=== PATIENT | male | born 1960 | race Caucasian/White ===

== ENCOUNTER 2016-11-03 03:56 | Inpatient (IN) | payer OTHER ==
[2016-11-03] VITALS (21 sets, daily range): BP systolic 11–136; BP diastolic 61–87; PULSE 3–95; RESP 15–26; O2SAT 92–100
[~2016-11-03] VITALS: Ht 177.8 cm; Wt 75.1 kg
--- NOTE | 2016-11-03 04:00 | ED.REPORT ---
HPI-Chest Pain 40 and Over Date of Service Nov 03, 2016 ED Provider: Dr. Howard Pt is a 56 year old male presenting to the ED complaining of sudden onset sharp abdominal pain onset at 0100 this morning. Associated symptoms include a productive cough, SOB, diaphoresis and nausea. He denies hx of ulcer, gallstones or pancreatitis. Pt reports that he normally drinks two fifths per week, and reports drinking EtOH tonight. Nursing Notes Stated Complaint: CHEST PAIN Chief Complaint: Male Abdominal Pain Nursing Notes Reviewed: Yes Allergies: Coded Allergies: iodine (Verified Allergy, Severe, SHELLFISH GETS HIVES BUT PT SAYS HE HAD CONTRAST DYE IN PAST, 05/07/09) peanut (Verified Allergy, Severe, RASH, 05/07/09) General Time Seen by MD: 04:00 Chief Complaint Other (Abd pain) Hx Obtained From: Patient Arrived By: Walk-in Sudden in Onset?: Yes Onset Occurred: 1 - 4 hours ago Context of Onset: Sleeping Symptom Duration: Since onset Quality: Painful Severity: Current: Severe Severity: Maximum: Severe Recent Healthcare: No recent doctor visit, No recent hospitalization Similar Sx Previous: No Past Medical History Past Medical History denies Past Surgical History denies Denies: Appendectomy Social History Alcohol Use: 1-3 per day Ambulatory Status Independent Review of Systems Respiratory: Reports: Non-productive cough, Shortness of breath GI: Reports: Abdominal pain, Nausea, Denies: Diarrhea, Vomiting Skin: Reports Diaphoresis Complete sys rev & neg: except as marked. Physical Exam Initial Vital Signs Vital Signs (First) Date Time Temp Pulse Resp B/P Pulse Ox O2 Delivery O2 Flow Rate FiO2 11/03/16 04:00 36.4 94 19 127/79 100 Room Air Initial VS: Reviewed Head / Eyes: Atraumatic, Normocephalic, PERRL ENT: Mucous membranes moist, Conjunctiva normal, No scleral icterus Extremities: Vascular intact, Neuro intact, No swelling, No tenderness Skin: Warm, Dry, No cyanosis Neurologic: Alert, Oriented, Nonfocal Psychiatric: Mood/affect normal, Behavior normal, Normal thought content General/Constitutional: Awake, Alert Distress / Hydration: Positive: Distress severe Smells of cigarettes Respiratory / Chest: Breath sounds NL, Breath sounds = bilat, No respiratory distress Cardiovascular: Heart rate NL, Regular rhythm, Heart sounds NL, No murmurs, Peripheral circulation NL, Pulses = bilaterally, No gross BP differential Abdomen: No distention Tenderness/Guarding/Rebound: Positive: Rigid to palpation Panting and grunting with pain Interpretation & Diagnostics Lab Results Interpretation Result Diagram: 11/03/16 0406 11/03/16 0406 Test 11/03/16 04:06 White Blood Count 6.8th/mm3 (3.8-10.1) Red Blood Count 4.51mil/mm3 (4.40-5.80) Hemoglobin 15.3g/dL (13.8-17.2) Hematocrit 44.5% (41.0-50.0) Mean Corpuscular Volume 98.7fL (81-100) Mean Corpuscular Hemoglobin 33.9pg (27.0-35.0) Mean Corpuscular Hemoglobin Concent 34.4% (32.0-37.0) Red Cell Distribution Width 12.8% (12.3-15.4) Platelet Count 266bil/L (150-400) Neutrophils (%) (Auto) 37.2% (40-74) Lymphocytes (%) (Auto) 46.9% (14-46) Monocytes (%) (Auto) 5.5% (4-12) Eosinophils (%) (Auto) 8.7% (0-5) Basophils (%) (Auto) 1.6% (0-3) Prothrombin Time 10.7sec (8.1-12.5) Prothromb Time International Ratio 1.00ratio Sodium Level 140mEq/L (134-144) Potassium Level 4.0mEq/L (3.5-5.2) Chloride Level 104mEq/L (97-108) Carbon Dioxide Level 22mmol/L (18-29) Blood Urea Nitrogen 24mg/dL (6-24) Creatinine 0.74mg/dL (0.76-1.27) Estimat Glomerular Filtration Rate 116mL/min (>59) Glucose Level 122mg/dL (60-99) Lactic Acid Level 2.0mmol/L (0.4-2.0) Calcium Level 9.3mg/dL (8.5-10.1) Magnesium Level 1.9mg/dL (1.6-2.6) Total Bilirubin 0.4mg/dL (0.0-1.2) Aspartate Amino Transf (AST/SGOT) 60U/L (0-50) Alanine Aminotransferase (ALT/SGPT) 67U/L (0-44) Alkaline Phosphatase 63U/L (25-150) Total Protein 7.2g/dL (6.4-8.4) Albumin 4.6g/dL (3.4-5.0) Lipase 30U/L (13-60) Hold Hale Top Tube Received (Received) ECG Interpretation ECG Interpretation: Abnormal R-wave progression, early transition. Time: 04:04 Interpreted by: ED physician Normal ECG Interpretation: Normal rate (85), Normal sinus rhythm Re-Eval/Medical Decision Med Decision/Clinical Course 56-year-old with fairly heavy drinking history, ongoing tobacco abuse, but no other complications of alcohol prior. He presents now with intense epigastric abdominal pain of sudden onset today, and proves to have a perforated gastric ulcer. He is admitted now to the surgical service for operative management. IV fluids, Zosyn, and transported in stable condition. Time of Eval: 04:35 Patient Status: Condition improved Re-Evaluation/Progress Note: Pt still pretty tender, but his pain is improved. Counseled Regarding: Diagnosis, Lab results, Need for follow-up, When/why to return to ED Discharge & Departure Primary Impression: Perforated gastric ulcer Additional Impressions: Alcoholism /alcohol abuse Tobacco abuse Disposition: Home Discharge Condition All VS Reviewed: Yes Condition: Improved Referrals: Tomás Mcgill MD (PCP) Scrib[facility] Attestation Portions of this note were transcribed by Rachel Guaman. I, Dr. Howard personally performed the history, physical exam and medical decision-making; I reviewed and confirmed the accuracy of the information in the transcribed note. Signed by: Denis Reyna, 11/03/2016 at 0600. copies to: Tomás Mcgill MD, Christopher W MD Nov 03, 2016 04:00 RACHEL GUAMAN Nov 03, 2016 04:08
[2016-11-03] MEDS ORDERED: 0.9% Sodium Chloride 1,000 ML IV ONE ×2 (04:06→06:40)
[2016-11-03] MEDS: HYDROmorphone 1 mg/mL Inj IVPUSH PRN ×2 (04:08→04:32)
[2016-11-03] MEDS ORDERED: Pantoprazole 4 mg/mL 10 mL Inj IVPUSH ONE (04:10)
[2016-11-03] MEDS ORDERED: Ondansetron 2 mg/mL 2 mL Inj IVPUSH ONE (04:10)
[2016-11-03 04:16] LABS: BASOPHILS % (AUTO) 1.6 % (0-3); EOSINOPHILS % (AUTO) 8.7 % (0-5); MONOCYTES % (AUTO) 5.5 % (4-12); Mean Corpuscular Hemoglobin 33.9 pg (27.0-35.0); Mean Corpuscular Volume 98.7 fL (81-100); NEUTROPHILS % (AUTO) 37.2 % (40-74); Platelet Count 266 bil/L (150-400)
[2016-11-03 04:38] LABS: Magnesium 1.9 mg/dL (1.6-2.6)
[2016-11-03] MEDS ORDERED: MethylprednisoLONE Sodium Succinate 62.5 mg/mL 2 mL Inj IVPUSH ONE (04:50)
[2016-11-03] MEDS ORDERED: Iohexol 300 mg/mL 30 mL Inj PO ONE (04:50)
[2016-11-03] MEDS ORDERED: Piperacillin-Tazo 3.375 Gm Inj 3.375 GM in Dextrose 5% Minibag Plus 50 ML IV ONE (06:40)
[2016-11-03] MEDS ORDERED: Lactated Ringer's 500 ML IV PRN (07:21)
--- NOTE | 2016-11-03 07:21 | PCM.HPANE ---
Patient Data Surgeon Admitting Provider: Attending Provider:Marilia Nickerson MD Primary Care Physician:Tomás Mcgill MD Other Provider:[facility] [facility] Reason for Visit Perforated Gastric Ulcer Ht/WT & BMI Weight (Kilograms): 77.27 Body Mass Index Allergies Coded Allergies: iodine (Verified Allergy, Severe, SHELLFISH GETS HIVES BUT PT SAYS HE HAD CONTRAST DYE IN PAST, 05/07/09) peanut (Verified Allergy, Severe, RASH, 05/07/09) Past Anesthesia History Anesthesia History: Denies:: Anesthesia Reactions Diabetes History Hx Diabetes?: No MRSA MRSA: No Medications Hypertension Medication: No Home Meds Incl Beta April: No History History of ENT Problems?: No HEENT History: Denies:: Cataracts Dysphagia Sinus Problem Denture Type: None Teeth Condition: Within Normal Limits Hx of Heart Problems?: No Cardiovascular History: Denies:: Cardiac Surgery Chest Pain Congestive Heart Failure Edema Heart Murmur Hypertension Irregular Heartbeat Pacemaker Thrombophlebitis Hx of Respiratory Problem?: Yes Respiratory History: Positive for:: Pneumonia Denies:: Asthma COPD Chest Surgery Dyspnea Emphysema Hemoptysis Tuberculosis Hx Neurologic Problems?: No Hx of GI Problems?: Yes Hx of Problems?: No Hx Musculoskeletal Problems?: No Musculoskeletal History: Positive for:: Back Injury Denies:: Joint Replacement Musculoskeletal Trauma Psycho Social History: Positive for:: Anxiety Hx Depression (was on antidepressant for short period) Hx Surgeries?: No Other History: Denies:: Cancer Endocrine Disease Hospitalization Thyroid Disease History Blood Transfusions: Denies:: Blood Transfuse Reaction Blood Transfusions Hx Diabetes: No Hx Alcohol Use: Yes (2 fifths per week)Hx Substance Use: NoHave You Smoked inLast 12 mo: YesApprox How Many Cigarettes/day: 2 packs per day Stop/Bang Treated for Sleep Apnea?: No Do You Have a CPAP Machine?: No LACHELLE Risk Assessment: Low Risk, <3 Yes Risk Assessment Category Category 1A: Patient has history of documented sleep apnea, and HAS NOT received any narcotic, sedative or anesthesia administration during this stay. Category 1B: Patient has history of documented sleep apnea, and HAS received any narcotic , sedative or anesthesia administration during this stay Category 2: Patient has SUSPECTED Obstructive Sleep Apnea, and HAS received any narcotic , sedative or anesthesia administration during this stay. Category 3: Patient has SUSPECTED Obstructive Sleep Apnea and HAS NOT received narcotic, sedative or anesthesia administration during this stay. Category 4: Outpatient in Procedural Areas with known sleep apnea or who screen positive for High Risk via the STOP/BANG questionnaire. Exam Exam Vital Signs Vital Signs Date Time Temp Pulse Resp B/P Pulse Ox O2 Delivery O2 Flow Rate FiO2 11/03/16 06:57 36.7 82 18 136/78 98 Room Air 11/03/16 04:00 36.4 94 19 127/79 100 Room Air General Appearance: Oriented X3 HEENT/AIRWAY: MP 2 Lungs: Normal Air Movement Heart: Regular Rate/Rhythm Meds/Labs/Diagnostics Admission Meds Current Medications Sodium Chloride (Normal Saline) 1,000 ml @ 0 mls/hr Q0M ONCE IV Last administered on 11/03/16 04:08; Start 11/03/16 at 04:06; Stop 11/03/16 at 04:07 ; Status DC Pantoprazole (Protonix Inj) 40 mg ONCE ONCE IVPUSH Last administered on 04:08; Start 11/03/16 at 04:10; Stop 11/03/16 at 04:11; Status DC Ondansetron HCl (Zofran Inj) 8 mg ONCE ONCE IVPUSH Last administered on 04:08; Start 11/03/16 at 04:10; Stop 11/03/16 at 04:11; Status DC Iohexol (Omnipaque-300 Inj) 9,000 mg ONCE ONCE PO Last administered on 05:02; Start 11/03/16 at 04:50; Stop 11/03/16 at 04:51; Status DC Diphenhydramine HCl (Benadryl Inj) 50 mg ONCE ONCE IVPUSH Last administered on 11/03/16 05:02; Start 11/03/16 at 04:50; Stop 11/03/16 at 04:51; Status DC Methylprednisolone Sodium Succinate 125 mg 125 mg ONCE ONCE IVPUSH Last administered on 11/03/16 05:02; Start 11/03/16 at 04:50; Stop 11/03/16 at 04:51 ; Status DC Piperacillin Sod/ Tazobactam Sod/ Dextrose/Water (Zosyn 3.375 Gm Inj/D5W Minibag Plus) 50 ml @ 100 mls/hr ONCE ONCE IV Last administered on 4/25/17at 07:18; Start 11/03/16 at 06:40; Stop 11/03/16 at 07:09; Status DC Labs Test 11/03/16 04:06 White Blood Count 6.8th/mm3 (3.8-10.1) Red Blood Count 4.51mil/mm3 (4.40-5.80) Hemoglobin 15.3g/dL (13.8-17.2) Hematocrit 44.5% (41.0-50.0) Mean Corpuscular Volume 98.7fL (81-100) Mean Corpuscular Hemoglobin 33.9pg (27.0-35.0) Mean Corpuscular Hemoglobin Concent 34.4% (32.0-37.0) Red Cell Distribution Width 12.8% (12.3-15.4) Platelet Count 266bil/L (150-400) Neutrophils (%) (Auto) 37.2% (40-74) Lymphocytes (%) (Auto) 46.9% (14-46) Monocytes (%) (Auto) 5.5% (4-12) Eosinophils (%) (Auto) 8.7% (0-5) Basophils (%) (Auto) 1.6% (0-3) Prothrombin Time 10.7sec (8.1-12.5) Prothromb Time International Ratio 1.00ratio Sodium Level 140mEq/L (134-144) Potassium Level 4.0mEq/L (3.5-5.2) Chloride Level 104mEq/L (97-108) Carbon Dioxide Level 22mmol/L (18-29) Blood Urea Nitrogen 24mg/dL (6-24) Creatinine 0.74mg/dL (0.76-1.27) Estimat Glomerular Filtration Rate 116mL/min (>59) Glucose Level 122mg/dL (60-99) Lactic Acid Level 2.0mmol/L (0.4-2.0) Calcium Level 9.3mg/dL (8.5-10.1) Magnesium Level 1.9mg/dL (1.6-2.6) Total Bilirubin 0.4mg/dL (0.0-1.2) Aspartate Amino Transf (AST/SGOT) 60U/L (0-50) Alanine Aminotransferase (ALT/SGPT) 67U/L (0-44) Alkaline Phosphatase 63U/L (25-150) Total Protein 7.2g/dL (6.4-8.4) Albumin 4.6g/dL (3.4-5.0) Lipase 30U/L (13-60) Hold Hale Top Tube Received (Received) Plan Impression Patient chart reviewed, patient interviewed and anesthestic plan with risks, benefits, and alternatives discussed, and informed consent obtained. ASA Physical Status: ASA2 Plus Emergency Anesthetic Plan: GA Bene/Risks/Altern/Consents: Yes HP Complete Prior to Induction: Yes Nolan Esquivel MD Nov 03, 2016 07:21
[2016-11-03] MEDS ORDERED: fentaNYL-PF 50 mCg/mL 2 mL Inj IVPUSH PRN (07:25)
[2016-11-03] MEDS ORDERED: HYDROmorphone 1 mg/mL Inj IVPUSH PRN (07:25)
[2016-11-03] MEDS ORDERED: EPHEDrine Sulfate 50 mg/mL Inj IVPUSH PRN (07:25)
[2016-11-03] MEDS ORDERED: Dexamethasone 4 mg/mL Inj IVPUSH PRN (07:25)
[2016-11-03] MEDS ORDERED: Phenylephrine 10,000 mCg/mL Inj IVPUSH PRN (07:25)
[2016-11-03] MEDS ORDERED: MetoCLOpramide 5 mg/mL 2 mL Inj IVPUSH PRN ×2 (07:25→11:25)
[2016-11-03] MEDS ORDERED: Ondansetron 2 mg/mL 2 mL Inj IVPUSH PRN (07:25)
[2016-11-03] MEDS ORDERED: Bupivacaine-MPF 0.25%/EPI 30 mL Inj INJ ONE (08:42)
[2016-11-03] MEDS: Lactated Ringer's 1,000 ML IV SCH ×2 (08:44→12:09)
--- NOTE | 2016-11-03 08:52 | DRSVH ---
PROCEDURE: CT ABDOMEN AND PELVIS WITH CONTRAST ([id number]) INDICATIONS: upper abdo pain TECHNIQUE: After the administration of oral and intravenous contrast, 5 mm thick sections acquired from the diap hragms to the symphysis. 5 mm thick coronal and sagittal reformats were performed. For radiation do se reduction, the following was used: automated exposure control, adjustment of mA and/or kV accordi ng to patient size. COMPARISON: None. FINDINGS: Image quality: Excellent. ABDOMEN: Lung bases: Right greater than left bibasilar scarring versus atelectasis.. Heart size is normal. Solid organs: Liver and spleen are normal in size and enhancement. Gallbladder is within normal bass its. Biliary system is non-dilated. Pancreas enhances normally. No adrenal nodules. Kidneys are n ormal in size and enhancement, without hydronephrosis. Peritoneum and bowel: Small hiatal hernia is present. There is thickening of the gastric antrum. Ther e is a 20 mm diameter contrast collection involving the posterior wall of the thickened gastric antru m. There is a 46 mm diameter diverticulum of the 2nd portion of the duodenum. The small bowel is othe rwise within normal limits. Diverticulosis of the descending and sigmoid colon. No evidence of acute diverticulitis. Small amount of free fluid within the pelvis. Small amount of left greater than right upper quadrant pneumoperitoneum. Nodes and vessels: No retroperitoneal or mesenteric adenopathy. Aorta and inferior vena cava are no rmal in caliber. Miscellaneous: No ventral hernias. PELVIS: Genitourinary: Bladder wall thickness is normal. Miscellaneous: No inguinal hernias or adenopathy. Bones: No suspicious bony lesions. No vertebral body compression fractures. IMPRESSION: 1. Gastritis with superimposed gastric antral ulcer, which has perforated, and there is a small amoun t of associated pneumoperitoneum present. 2. Concordant with preliminary interpretation.Findings were discussed with Dr. Howard on 11.03.16 at 0630 [facility] Dictated by: Saulo Holman M.D. on 11/03/2016 at 8:46 Approved by: Saulo Holman M.D. on 11/03/2016 at 8:50
[2016-11-03] MEDS: Multivit-Miner-Folic Acid-Iron Tablet PO SCH (11:25)
[2016-11-03] MEDS ORDERED: Polyethylene Glycol (PEG) 17 Gm Powder PO PRN (11:25)
--- NOTE | 2016-11-03 11:59 | PCM.ANEP1 ---
Post Anesthesia Phase 1 PACU Phase 1 Assessment Vital Signs Vital Signs Date Time Temp Pulse Resp B/P Pulse Ox O2 Delivery O2 Flow Rate FiO2 11/03/16 11:55 81 15 100/61 94 Nasal Cannula 4 11/03/16 11:52 81 15 102/62 94 Nasal Cannula 4 11/03/16 11:45 82 21 105/64 92 Nasal Cannula 3 11/03/16 11:38 84 24 105/66 97 Room Air 11/03/16 11:31 95 26 110/87 98 Simple Mask 10 11/03/16 11:25 84 26 95/64 97 Simple Mask 10 11/03/16 11:20 86 17 112/73 99 Simple Mask 10 11/03/16 11:13 36.5 87 18 118/75 99 Simple Mask 10 11/03/16 06:57 36.7 82 18 136/78 98 Room Air 11/03/16 04:00 36.4 94 19 127/79 100 Room Air Anesthetic Administered: GA Level of Alertness: Awake, talking Pain: No Pain Scale Score: 10 Nausea or Vomiting: No Oxygen Delivery: Room Air Lungs: Normal Air Movement Nolan Esquivel MD Nov 03, 2016 11:59
[2016-11-03] MEDS: Dextrose 5% Lactated Ringer's 1,000 ML IV SCH (13:15)
[2016-11-03] MEDS: Dextrose 5% 500 ML IV SCH (13:19)
--- NOTE | 2016-11-03 13:30 | CONS ---
[address] [address] CONSULTATION REPORT PATIENT: OTTONIEL BANSAL : 1960 MR#: [id number] ADMIT: 11/03/2016 JOB ID: [id number] DATE OF SERVICE: 11/03/2016 SURGICAL CONSULTATION: CHIEF COMPLAINT: A 56-year-old man with acute abdominal pain. This consultation is requested by Dr. Howard of the Emergency Department. HISTORY OF PRESENT ILLNESS: This is a 56-year-old man with a history of heavy NSAID and alcohol use who presented to the emergency department with a sudden onset of sharp abdominal pain in the midepigastrium and left upper quadrant. He also reported a productive cough, shortness of breath, diaphoresis and nausea. His abdominal pain slowly improved in the emergency department. A CT scan was performed which demonstrated free air and thickening of the posterior gastric wall at the distal aspect of the antrum. PAST MEDICAL HISTORY: 1. Arthritis. 2. Heavy alcohol use. PAST SURGICAL HISTORY: None. MEDICATIONS: He takes diclofenac b.i.d. for arthritis pain. ALLERGIES: No known drug allergies. SOCIAL HISTORY: He lives in [place] on [address]. 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 He lives with his and his son. He does smoke, and he drinks two fifths of liquor per week. REVIEW OF SYSTEMS: An eleven point review of systems is positive for abdominal pain, diaphoresis, nausea, cough, shortness of breath, and is otherwise negative. PHYSICAL EXAMINATION: Temperature 36.4, heart rate 94, blood pressure 127/79, saturation 100% on room air. Respiratory rate of 19. General: Awake, alert, mild distress. Head: Normocephalic. Neck: Supple. Cardiac: Regular rate and rhythm, no murmurs, rubs, or gallops. Respiratory: Clear to auscultation bilaterally. Abdomen: Soft, nondistended, mild tenderness in bilateral upper quadrants. No rebound or guarding. Extremities: No gross abnormalities. Psychiatric: Normal cognition and judgment. LABORATORIES: White blood cell count 6.8, hematocrit 44.5, platelets 266. Comprehensive metabolic panel is within normal limits including bilirubin 0.4 and lipase of 30. There are mild abnormalities in AST which is 60, and ALT which is 67. IMAGING: A CT scan of the abdomen is personally reviewed. It demonstrates a gastritis with a thickened gastric wall in the antrum which was perforated with a small amount of associated pneumoperitoneum. ASSESSMENT: A 78-year-old man with pneumoperitoneum secondary to perforated peptic ulcer, probably on the posterior gastric antral wall. PLAN: He will be taken to the operating room for a laparoscopic exploration with washout in order to identify the perforated peptic ulcer and treated surgically. We discussed the risks and benefits of surgery, including infection, bleeding, and injury to surrounding structures. He agrees and elects to proceed. This was discussed in detail with his as well. She is primarily concerned with his withdrawal from alcohol given his heavy alcohol use. For this reason, the hospitalist team will be consulted postoperatively to assist with management of alcohol withdrawal.
--- NOTE | 2016-11-03 14:00 | NUR ---
Admit Pt admitted to [facility] from OR. A&Ox3, ARREDONDO in bed, vitals stable on O2 and brito draining pale urine to gravity. Admit completed. Surgical sites clean and intact. Belongings brought with. Family at the bedside.
[2016-11-03] MEDS ORDERED: Dexamethasone 4 mg/mL Inj ONE (14:25)
[2016-11-03] MEDS ORDERED: Rocuronium 10 mg/mL 5 mL Inj ONE (14:25)
[2016-11-03] MEDS ORDERED: Propofol 10,000 mCg/mL 20 mL Inj ONE (14:25)
[2016-11-03] MEDS ORDERED: Glycopyrrolate 0.2 MG/ML 1mL Inj ONE (14:25)
[2016-11-03] MEDS ORDERED: MetoCLOpramide 5 mg/mL 2 mL Inj ONE (14:25)
[2016-11-03] MEDS ORDERED: Ondansetron 2 mg/mL 2 mL Inj ONE (14:25)
[2016-11-03] MEDS ORDERED: Neostigmine 1 mg/mL 10 mL Inj ONE (14:25)
[2016-11-03] MEDS: HYDROmorphone PCA 0.2 mg/mL 30 mL Inj IV PRN (14:33)
[2016-11-03] MEDS ORDERED: Thiamine Inj 100 MG, Folic Acid Inj 1 MG, Magnesium Sulfate 50% Inj 2 GM, Multivitamins... IV ONE ×5 (15:05)
[2016-11-03] MEDS ORDERED: DICL50TA7 PO (16:13)
[2016-11-03] MEDS: Pantoprazole 4 mg/mL 10 mL Inj IVPUSH SCH (16:34)
--- NOTE | 2016-11-03 17:51 | PCM.HPMED ---
Subjective Date of Service Nov 03, 2016 Primary Provider: Admitting Physician: Marilia Nickerson MD Primary Care Physician: Tomás Mcgill MD Attending Physician: Marilia Nickerson MD Chief Complaint: 56-year-old man with DJD presents with acute abdominal pain secondary to peptic ulcer disease History of Present Illness: Patient has long-standing DJD and is used nonsteroidals for many years, most recently diclofenac. He also has symptomatic dyspepsia for which he takes ranitidine. He has no prior history of peptic ulcer. On the night prior to admission he awakened with severe epigastric pain radiating to below his left anterior ribs. The pain is constant in character. There is severe. Associated with diaphoresis. No significant emesis. No exacerbating or remitting factors. He reports no recent changes in his bowel movements. He presented to the emergency department and CT imaging suggested gastric thickening with pneumoperitoneum for which he was referred to the general surgery service. Underwent endoscopic laparotomy by Dr. Nickerson, which did not confirm the diagnosis of perforation, and received an omental patch to a duodenal ulcer. He is now postop with complaints of moderate discomfort from his NG tube. He has passed no flatus since surgery. He has no other symptoms. He consumes alcohol regularly, although he has had a history of periods without alcohol without severe withdrawal symptoms. Review of Systems: 12 systems reviewed: Pertinent negatives include no abdomen pain; no anxiety or tremulousness. He is a lifelong heavy smoker but has no COPD. Incidental positives include chronic back pain. Allergies Coded Allergies: iodine (Verified Allergy, Severe, SHELLFISH GETS HIVES BUT PT SAYS HE HAD CONTRAST DYE IN PAST, 05/07/09) peanut (Verified Allergy, Severe, RASH, 05/07/09) Home Medications Diclofenac When necessary ranitidine PMH # Degenerative joint disease primarily affecting hips and knees bilaterally # Dyspepsia # Tobacco dependence - 1-2 packs per day 40 years Family History No gastric cancer. No abdominal surgeries or familial ulcer syndromes. 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 Hx Alcohol Use: Yes Alcoholic Drinks Per Day: 3-4 whisky Hx Substance Use: No Hx Tobacco Use: Yes Living Arrangement: with Family (at home with his ) Exam Vital Signs Vital Sign - Last Date Time Temp Pulse Resp B/P Pulse Ox O2 Delivery O2 Flow Rate FiO2 11/03/16 16:39 Supplement Oxygen 11/03/16 16:12 36.9 87 18 109/71 97 3.00 Intake and Output 11/02/16 11/02/16 11/03/16 Cumulative From/Thru 15:00 23:00 07:00 11/03/16 04:00 - 11/03/16 04:19 Intake Total 1000 ml 1000 ml Balance 1000 ml 1000 ml Intake IV Total 1000 ml 1000 ml Exam General: Generally healthy, mild distress due to NG tube HEENT: sclerae anicteric, oral mucosa moist Neck: Supple, no JVD Chest: clear to auscultation Cardiac: S1S2, regular, no murmur Abdomen: BS absent, multiple surgical bandages, nondistended Extremities: No pedal edema Neuro: A&O, cranial nerves symmetric, no nystagmus, no tremor, reflexes 2+ symmetric, motor strength 5/5, coordination normal Lab and Diagnostics Result Diagram: 11/03/16 0406 11/03/16 0406 X-Rays, CTs and MRIs PROCEDURE: CT ABDOMEN AND PELVIS WITH CONTRAST (PNL-7102) IMPRESSION: 1. Gastritis with superimposed gastric antral ulcer, which has perforated, and there is a small amount of associated pneumoperitoneum present. 2. Concordant with preliminary interpretation.Findings were discussed with Dr. Howard on 11.03.16 at 0630 [facility] Dictated by: Saulo Holman M.D. on 11/03/2016 at 8:46 . 12-lead ECG Sinus rhythm rate 85, conduction normal. Assessment & Plan 56-year-old man presents with acute symptomatic peptic ulcer disease, in the setting of nonsteroidal use, heavy alcohol intake and cigarette smoking. # Peptic ulcer disease, present on admission. Duodenal ulcer. No evidence of bleeding. Now status post omental [place] patch. - Hydromorphone [employer] for pain control - NG tube to low intermittent suction - Nothing by mouth pending return of gut function - Surgery service to manage postsurgical abdominal care - Pro time pump inhibitor IV until taking by mouth - H. pylori stool antigen ordered - Repeat CBC in a.m. # Transaminase elevation, present on admission. ALT/AST of 67/60 on admission. Bilirubin normal. Likely related to alcohol or NSAID use. Clinically mild, no indication for viral testing. - Follow clinically. - Repeat CMP in a.m. # Heavy alcohol use, chronic, present on admission. Currently no significant anxiety sweats or tremor. - [facility] order set # Tobacco dependence, chronic. Patient was counseled by Isaac regarding health benefits of quitting. - Nicotine patch when necessary Venous thromboembolism prophylaxis - plan to initiate Lovenox subcutaneous on , unless signs of active bleeding Disposition:. Patient is admitted to inpatient status and need for greater than 2 nights of inpatient care for acute peptic ulcer disease with laparoscopic surgical treatment Pain Evaluation: Adequate Pain Control GI Prophylaxis: Proton Pump Inhibitor VTE Mechanical Devices: Intermittant Pneumatic CD Time spent 60 minutes Cornelius Hsu MD Nov 03, 2016 17:50
--- NOTE | 2016-11-03 17:55 | OP ---
[address] [address] OPERATIVE REPORT PATIENT: OTTONIEL BANSAL : 1960 MR#: [id number] ADMIT: 11/03/2016 JOB ID: [id number] DATE OF SURGERY: 11/03/2016 SURGEON: Marilia Nickerson MD PREOPERATIVE DIAGNOSIS(ES): Perforated peptic ulcer. POSTOPERATIVE DIAGNOSIS(ES): Microperforation of duodenal ulcer. PROCEDURE PERFORMED: 1. Diagnostic laparoscopy. 2. Laparoscopic Flaquito patch. 3. Upper endoscopy. HISTORY OF PRESENT ILLNESS: This is a 56-year-old man who is healthy with the exception of alcoholism and heavy NSAID use due to arthritis. He presented to the emergency department with acute progressive abdominal pain. Abdominal CT scan was performed showing free air and possible leakage of intragastric contrast on the posterior aspect of the stomach. Additionally, the posterior stomach appeared to be thickened and inflamed on CT scan. He was therefore brought for diagnostic laparoscopy with closure of the perforation. FINDINGS: 1. The entire anterior stomach and anterior duodenum appeared normal. 2. The posterior 1/3 of the stomach appeared normal laparoscopically. 3. There was a small ulcer in the 2nd portion of the duodenum which was not bleeding and from which no air leaked when air leak test was performed during upper endoscopy. Mild antral gastritis. No additional mucosal abnormalities of the stomach or duodenum to the third portion. 4. Flaquito patch performed at the endoscopically identified location of the duodenal ulcer. DESCRIPTION OF PROCEDURE: The patient was brought to the operating room and placed in supine position. General anesthesia was induced. A warming blanket and SCDs were placed. Antibiotics had been infused previously. The operative field was prepped and draped in sterile fashion. A Ford catheter had been placed. A preprocedural pause was performed to confirm the correct patient, procedure, and site. The abdomen was entered using a Veress needle in the left upper quadrant and a 10 mm port was placed. Four additional 5 mm ports were placed in the left lateral mid abdomen, left medial mid abdomen, and two in the right upper quadrant. The stomach was carefully inspected. There was a small amount of murky fluid near the junction of the gallbladder and the duodenum. There was no other sign of gastric or intestinal contents. Copious irrigation was performed. Based on CT scan findings of free air posterior to the antrum, a LigaSure device was used to take down the short gastrics along the greater curvature of the distal 1/3 of the stomach. This was done until the duodenum was visualized. Careful inspection revealed no sign of perforation or serosal abnormality of the stomach or the very proximal duodenum at this location. The gallbladder was lifted cephalad to get better visualization of the anterior duodenum, and no other abnormalities were seen. An NG tube was then placed and the abdomen was insufflated with air, and irrigation was placed into the abdomen such that the entire stomach and duodenum were under fluid. No sign of an air leak was identified. Therefore, an upper endoscope was used to visualize the esophagus, the entire stomach, and the duodenum to the third portion. This revealed a small duodenal ulcer at the junction between the 1st and 2nd portion of the duodenum on the anterior side. The exact location of the ulcer was identified both endoscopically and laparoscopically. There was mild antral gastritis. Although the antrum had felt very thick, with a grasper laparoscopically, there were no mucosal abnormalities in the antrum. Retroflexed view did not reveal any abnormalities of the cardia, fundus, or body. The air was suctioned out and the NG tube was confirmed to be in adequate position within the mid portion of the stomach. The endoscope was then removed entirely. I then scrubbed back in and perform an omental Flaquito patch over the location on the duodenum where the ulcer had been located, which was at the junction of D1 and D2 on the anterior side. Two interrupted 3-0 silk sutures were used to place the omentum in that location laparoscopically. The left upper quadrant 10 mm port site was closed with an interrupted 2-0 PDS stitch. The remaining ports were removed. The patient was awakened from general anesthesia and taken to the postoperative care unit in good condition. ESTIMATED BLOOD LOSS: 2 mL. SPECIMENS: None. COMPLICATIONS: None.
[2016-11-03] MEDS: Senna-Docusate 8.6-50 mg Tablet PO SCH (19:46)
[2016-11-04] VITALS (11 sets, daily range): BP systolic 98–142; BP diastolic 53–84; PULSE 72–94; RESP 16–24; O2SAT 89–97
[2016-11-04] MEDS: Dextrose 5% Lactated Ringer's 1,000 ML IV SCH ×3 (01:26→22:08)
[2016-11-04] MEDS: HYDROmorphone PCA 0.2 mg/mL 30 mL Inj IV PRN ×2 (03:02→15:56)
--- NOTE | 2016-11-04 03:19 | NUR ---
PAIN/SOLAR SALES REP patient found to be 10/10 pain, moaning, flushed face. patient states he is trying to use less pain medication. pt re-educated on SOLAR SALES REP use and pain scale. return demonstration observed. patient reports better pain control thru rest of NOC.
[2016-11-04 03:33] LABS: BASOPHILS % (AUTO) 0.1 % (0-3); EOSINOPHILS % (AUTO) 0 % (0-5); MONOCYTES % (AUTO) 5.2 % (4-12); Mean Corpuscular Hemoglobin 34.1 pg (27.0-35.0); Mean Corpuscular Volume 102.1 fL (81-100); NEUTROPHILS % (AUTO) 87.7 % (40-74); Platelet Count 204 bil/L (150-400)
[2016-11-04 04:17] LABS: Magnesium 1.9 mg/dL (1.6-2.6)
[2016-11-04] MEDS: Pantoprazole 4 mg/mL 10 mL Inj IVPUSH SCH ×2 (07:53→17:40)
--- NOTE | 2016-11-04 08:18 | PCM.PNSURG ---
Subjective Visit Information: Reason for Visit Perforated Gastric Ulcer Surgery/Surgery Date Post-Op Day # Date of Admission: Nov 03, 2016 at 13:23 Hospital Day # Subjective: Stable overnight. No complaints this am. WBC 13, HCT 39. Minimal output from NG. Objective Vital Sign- Last 8 Hours Date Time Temp Pulse Resp B/P Pulse Ox O2 Delivery O2 Flow Rate FiO2 11/04/16 07:50 20 93 11/04/16 07:50 36.5 72 20 98/53 93 Nasal Cannula 2.00 11/04/16 04:34 16 97 11/04/16 02:52 36.5 76 18 100/65 94 Nasal Cannula 3.00 Intake and Output- Last 8 Hour 11/04/16 Cumulative From/Thru 07:00 11/03/16 04:00 - 11/04/16 06:38 Intake Total 2202 ml 4302 ml Output Total 600 ml 2275 ml Balance 1602 ml 2027 ml Intake Oral 100 ml 150 ml IV Total 2102 ml 4152 ml Output Urine Total 600 ml 2275 ml # Bowel Movements 0 General: Alert, Oriented X3, Cooperative Abdomen: Soft, Appropriately tender Result Diagram: 11/04/16 0305 11/04/16 0305 Assessment & Plan Impression 56yom POD1 lap nneka patch with duodenal ulceration Problems: Plan UGI today. Pending results will consider d/c of NG and possible advancement to clears. SHAGGY IYER Appreciate hospitalist team's work with the care of this patient. Marilia Nickerson MD Nov 04, 2016 08:18
[2016-11-04] MEDS: Senna-Docusate 8.6-50 mg Tablet PO SCH ×2 (08:30→19:28)
[2016-11-04] MEDS: Multivit-Miner-Folic Acid-Iron Tablet PO SCH (08:30)
--- NOTE | 2016-11-04 09:45 | NUR ---
Rounds Per MD, to hold all po medications and D/C brito. MD notified that pt does not have active code status.
--- NOTE | 2016-11-04 10:12 | NUR ---
Pt down for UGI at 0945. Stable and w/o complaints. NG clamped. Addendum: 11/04/16 at 1057 by ELIDA CURRY RN Per MD, unable to complete UGI. Per MD to advance NG. Advanced from 49 cm to 58 cm. Hospitalist aware that pt desats with out O2. IS encouraged. NC 2 to 3L with sats 90 to 92 Addendum: 11/04/16 at 1555 by ELIDA CURRY RN Hospitalist notified of little NG output so far this shift, about 75 ml. No new orders, to continue to monitor.
--- NOTE | 2016-11-04 10:36 | PCM.PNMED ---
Subjective Date of Service Nov 04, 2016 Subjective He is having a fair amount of abdominal pain especially when moving or flexing. He denies nausea. He is hungry. He is also somewhat short of breath. No fevers chills or cough. No nausea. He denies any chest pain. Exam Vital Signs Vital Sign - Last Date Time Temp Pulse Resp B/P Pulse Ox O2 Delivery O2 Flow Rate FiO2 11/04/16 10:26 79 11/04/16 07:50 Supplement Oxygen 11/04/16 07:50 20 93 11/04/16 07:50 36.5 98/53 2.00 Intake and Output 11/03/16 11/03/16 11/04/16 Cumulative From/Thru 15:00 23:00 07:00 11/03/16 04:00 - 11/04/16 06:38 Intake Total 1050 ml 50 ml 2202 ml 4302 ml Output Total 850 ml 825 ml 600 ml 2275 ml Balance 200 ml -775 ml 1602 ml 2027 ml Intake Oral 50 ml 100 ml 150 ml IV Total 1050 ml 2102 ml 4152 ml Output Urine Total 850 ml 825 ml 600 ml 2275 ml # Bowel Movements 0 0 Exam Alert and oriented -3, no distress. Fluent speech Anicteric sclera. Lungs are clear with normal rate and effort Heart is regular without murmur gallop or rub Abdomen soft nontender, flat minimal tenderness on the lateral aspects. Multiple port sites are covered with bandages. Extremities are free of edema. Skin is free of rash or lesions. IVs and Medications Medications Reviewed: Medications were reviewed in detail Lab and Diagnostics Result Diagram: 11/04/16 0305 11/04/16 0305 X-Rays, CTs and MRIs PROCEDURE: CT ABDOMEN AND PELVIS WITH CONTRAST ([id number]) IMPRESSION: 1. Gastritis with superimposed gastric antral ulcer, which has perforated, and there is a small amount of associated pneumoperitoneum present. 2. Concordant with preliminary interpretation.Findings were discussed with Dr. Howard on 11.03.16 at [facility]30 [facility] Dictated by: Saulo Holman M.D. on 11/03/2016 at 8:46 . 12-lead ECG Sinus rhythm rate 85, conduction normal. Assessment & Plan 56-year-old man presents with acute symptomatic peptic ulcer disease, in the setting of nonsteroidal use, heavy alcohol intake and cigarette smoking. # Peptic ulcer disease, present on admission. Duodenal ulcer. No evidence of bleeding. Now status post omental Flaquito patch. - Hydromorphone THREAD SPOOLER for pain control - NG tube to low intermittent suction - Nothing by mouth pending return of gut function - Surgery service to manage postsurgical abdominal care - Pro time pump inhibitor IV until taking by mouth - H. pylori stool antigen ordered - Repeat CBC in a.m. Patient has had his ulcer patch. The attempt at a repeat endoscopy today was unsuccessful due to retained contrast. The plan will be to suction the contrast out. We will use ice chips only for a day, add Zosyn, and repeat endoscopy attempt tomorrow. # Transaminase elevation, present on admission. ALT/AST of 67/60 on admission. Bilirubin normal. Likely related to alcohol or NSAID use. Clinically mild, no indication for viral testing. - Follow clinically. - Repeat CMP in a.m. This probably represents alcohol induced hepatitis. We will continue to follow clinically.\ # Heavy alcohol use, chronic, present on admission. Currently no significant anxiety sweats or tremor. - CIWA order set\ No current evidence of alcohol all. The feels that this typically is not a problem. We will continue to follow carefully. # Tobacco dependence, chronic. Patient was counseled by Isaac regarding health benefits of quitting. - Nicotine patch when necessary Venous thromboembolism prophylaxis - plan to initiate Lovenox subcutaneous on , unless signs of active bleeding Disposition:. Patient is admitted to inpatient status and need for greater than 2 nights of inpatient care for acute peptic ulcer disease with laparoscopic surgical treatment GI Prophylaxis: Proton Pump Inhibitor VTE Mechanical Devices: Intermittant Pneumatic CD Yogesh Wilson MD Nov 04, 2016 10:36
--- NOTE | 2016-11-04 11:17 | DRSVH ---
PROCEDURE: X-RAY ABDOMEN, ONE VIEW ([id number]) INDICATIONS: duodenal perf TECHNIQUE: One view of the abdomen acquired. COMPARISON: None. FINDINGS: Surgical changes and devices: Nasogastric tube tip projected over the distal esophagus. Bowel: Stomach is moderately distended with gas and there is residual contrast within the colon. Soft tissues: No suspicious abdominal calcifications. Visualized solid organ contours appear normal in size. Bones: No suspicious bony lesions. IMPRESSION: 1. Nasogastric tube tip projects over the distal esophagus. 2. Moderate gaseous distention of the stomach. 3. Residual contrast within the colon. Dictated by: Jaron Pan [facility] Interpreted: Cortez Carlos MD on 11/04/2016 at 11:16 Transcribed by: SAEED on 11/04/2016 at 11:17 Approved by: Cortez Carlos M.D. on 11/04/2016 at 15:40
--- NOTE | 2016-11-04 11:21 | DRSVH ---
PROCEDURE: X-RAY CHEST ONE VIEW, PORTABLE ([id number]) INDICATIONS: 56-year-old male with nasogastric tube placement. TECHNIQUE: One view of the chest was acquired. COMPARISON: [facility], CR, XR ABD AP 1VW, 11/04/2016, 10:32. [facility], CR , CHEST 2VW, 05/31/2013, 16:15. [facility], CR, CHEST 2VW, 07/29/2009, 13:45. FINDINGS: Surgical changes and devices: Nasogastric tube is present, with tip in the gastric body. Lungs and pleura: No pleural effusions or pneumothorax. Lungs are clear. Mediastinum: Mediastinal contours appear normal. Heart size is normal. Bones and chest wall: No suspicious bony lesions. Overlying soft tissues appear unremarkable. IMPRESSION: Nasogastric tube is in expected position, with interval decreased caliber of the gastric lumen. Dictated by: Daron Baker M.D. on 11/04/2016 at 11:13 Approved by: Draon Baker M.D. on 11/04/2016 at 11:14
[2016-11-04] MEDS ORDERED: 0.9% Sodium Chloride 100 ML ONE (11:25)
[2016-11-04] MEDS: Dextrose 5% 500 ML IV SCH (11:29)
[2016-11-04] MEDS: Piperacillin-Tazo 3.375 Gm Inj 3.375 GM in Dextrose 5% Minibag Plus 50 ML IV SCH ×2 (11:37→17:40)
--- NOTE | 2016-11-04 17:46 | NUR ---
Output Pt's brito was removed at 1035. Pt able to void 50cc's. Bladder scan 128 mls. Pt comfortable. Will continue to monitor.
--- NOTE | 2016-11-04 18:54 | NUR ---
Pain Pt at 1830 receiving bed bath. Per pt, moved to adjust body and experienced pain in shoulder and left lower abdomen post movement with 10/10 pain. Left upper abdomen assessed to be tender to palpation. Lap sites intact and c/d/i. Bolus dose of 0.3mg of dilaudid at 1837 with relief to 10. Back to 8/10 10 minutes later and second bolus dose given per protocol. Sats 91 to 93 % when patient taking normal breaths with NC at 4L. RR stable at 14 to 18. Pain after second bolus 10. Bp stable. Will continue to monitor.
[2016-11-04] MEDS ORDERED: Ondansetron 2 mg/mL 2 mL Inj IVPUSH PRN (21:55)
[2016-11-05] VITALS (10 sets, daily range): BP systolic 106–144; BP diastolic 67–85; PULSE 89–103; RESP 18–22; O2SAT 89–96
[2016-11-05] MEDS: Piperacillin-Tazo 3.375 Gm Inj 3.375 GM in Dextrose 5% Minibag Plus 50 ML IV SCH ×3 (01:59→17:11)
[2016-11-05] MEDS: HYDROmorphone PCA 0.2 mg/mL 30 mL Inj IV PRN (03:40)
[2016-11-05] MEDS: Senna-Docusate 8.6-50 mg Tablet PO SCH ×2 (07:31→21:50)
[2016-11-05] MEDS: Multivit-Miner-Folic Acid-Iron Tablet PO SCH (07:31)
[2016-11-05] MEDS: Pantoprazole 4 mg/mL 10 mL Inj IVPUSH SCH ×2 (08:06→17:11)
[2016-11-05] MEDS ORDERED: Heparin 5,000 Unit/mL Inj SUBQ SCH (08:30)
[2016-11-05 08:41] LABS: Mean Corpuscular Hemoglobin 33.6 pg (27.0-35.0); Mean Corpuscular Volume 102.8 fL (81-100)
[2016-11-05] MEDS: Dextrose 5% Lactated Ringer's 1,000 ML IV SCH ×2 (08:52→18:43)
[2016-11-05] MEDS: Dextrose 5% 500 ML IV SCH (08:53)
--- NOTE | 2016-11-05 10:03 | PCM.PNMED ---
Subjective Date of Service Nov 05, 2016 Subjective He feels he is improving. Less abdominal pain today. No nausea. No vomiting. Some flatus. No bowel movement. No chest pain, palpitations or dyspnea. No confusion. An tolerating ice chips. Exam Vital Signs Vital Sign - Last Date Time Temp Pulse Resp B/P Pulse Ox O2 Delivery O2 Flow Rate FiO2 11/05/16 08:00 94 11/05/16 07:59 22 93 Nasal Cannula 4.50 11/05/16 03:42 37.1 106/67 Intake and Output 11/04/16 11/04/16 11/05/16 Cumulative From/Thru 14:59 22:59 06:59 11/03/16 04:00 - 11/05/16 06:39 Intake Total 1549 ml 1394 ml 7245 ml Output Total 350 ml 650 ml 1450 ml 4725 ml Balance -350 ml 899 ml -56 ml 2520 ml Intake Oral 150 ml 50 ml 350 ml IV Total 1399 ml 1344 ml 6895 ml Output Urine Total 350 ml 50 ml 400 ml 3075 ml Gastric Drainage Total 600 ml 1050 ml 1650 ml # Bowel Movements 0 Exam Alert and oriented -3, no distress. Fluent speech Anicteric sclera. Lungs are clear with normal rate and effort Heart is regular without murmur gallop or rub Abdomen soft nontender, flat with the exception of some tenderness to deep palpation in the left upper quadrant. Hypoactive bowel tones. Extremities are free of edema. Skin is free of rash or lesions. IVs and Medications Medications Reviewed: Medications were reviewed in detail Lab and Diagnostics Result Diagram: 11/05/16 0815 11/05/16 0815 X-Rays, CTs and MRIs PROCEDURE: CT ABDOMEN AND PELVIS WITH CONTRAST ([id number]) IMPRESSION: 1. Gastritis with superimposed gastric antral ulcer, which has perforated, and there is a small amount of associated pneumoperitoneum present. 2. Concordant with preliminary interpretation.Findings were discussed with Dr. Howard on 11.03.16 at 0630 hrs. by [facility] Radiology service. Dictated by: Saulo Holman M.D. on 11/03/2016 at 8:46 . 12-lead ECG Sinus rhythm rate 85, conduction normal. Assessment & Plan 56-year-old man presents with acute symptomatic peptic ulcer disease, in the setting of nonsteroidal use, heavy alcohol intake and cigarette smoking. # Peptic ulcer disease, present on admission. Duodenal ulcer. No evidence of bleeding. Now status post omental Flaquito patch. - Hydromorphone RN SHIFT MGR for pain control The plan is to pull NG tube today. Endoscopy to revisualize the repair. Continue ice chips and then a endoscopy looks good to advance to a full liquid diet. # Transaminase elevation (alcohol-induced hepatitis), present on admission. ALT /AST of 67/60 on admission. This is improving. # Heavy alcohol use, chronic, present on admission. Currently no significant anxiety sweats or tremor. - CIWA order set\ No current evidence of alcohol withdrawal. The feels that this typically is not a problem. We will continue to follow carefully. # Tobacco dependence, chronic. Patient was counseled by Isaac regarding health benefits of quitting. - Nicotine patch when necessary Venous thromboembolism prophylaxis - plan to initiate Lovenox subcutaneous on , unless signs of active bleeding Disposition:. Patient is admitted to inpatient status and need for greater than 2 nights of inpatient care for acute peptic ulcer disease with laparoscopic surgical treatment GI Prophylaxis: Proton Pump Inhibitor VTE Mechanical Devices: Intermittant Pneumatic CD Yogesh Wilson MD Nov 05, 2016 10:03
[2016-11-05] MEDS: levoFLOXacin Inj 750 MG in IV Premix 1 EACH IV SCH (12:56)
--- NOTE | 2016-11-05 13:06 | PCM.PNSURG ---
Subjective Visit Information: Reason for Visit Perforated Gastric Ulcer Surgery/Surgery Date Post-Op Day # Date of Admission: Nov 03, 2016 at 13:23 Hospital Day # Subjective: Stable overnight. Leukocytosis resolved. He is taking ice chips and has clear NG output. Wants the NG out. Objective Vital Sign- Last 8 Hours Date Time Temp Pulse Resp B/P Pulse Ox O2 Delivery O2 Flow Rate FiO2 11/05/16 12:43 37.0 89 20 121/74 89 Nasal Cannula 4.00 11/05/16 10:00 18 94 11/05/16 08:30 Supplement Oxygen 11/05/16 08:30 37.0 90 18 120/75 94 Nasal Cannula 4.00 11/05/16 08:00 94 11/05/16 07:59 103 22 93 Nasal Cannula 4.50 11/05/16 06:45 18 94 Intake and Output- Last 8 Hour 11/05/16 Cumulative From/Thru 06:59 11/03/16 04:00 - 11/05/16 06:39 Intake Total 1394 ml 7245 ml Output Total 1450 ml 4725 ml Balance -56 ml 2520 ml Intake Oral 50 ml 350 ml IV Total 1344 ml 6895 ml Output Urine Total 400 ml 3075 ml Gastric Drainage Total 1050 ml 1650 ml # Bowel Movements 0 General: Alert, Oriented X3, Cooperative, No Acute Distress Abdomen: Soft, Appropriately tender, Non-distended Result Diagram: 11/05/16 0815 11/05/16 0815 Assessment & Plan Impression POD lap Flaquito patch for microperforation of duodenal ulcer Problems: Plan UGI today. Likely discontinuation of NG after that with CLD. Marilia Nickerson MD Nov 05, 2016 13:06
--- NOTE | 2016-11-05 14:10 | DRSVH ---
PROCEDURE: X-RAY ABDOMEN, ONE VIEW ([id number]) INDICATIONS: DUODENAL PERF TECHNIQUE: One view of the abdomen acquired. COMPARISON: [facility], CT, CT ABD PELVIS W CON, 11/03/2016, 6:11. [facility], CR, XR ABD AP 1VW, 11/04/2016, 10:32. FINDINGS: Surgical changes and devices: Nasogastric tube present tip traversing the GE junction which has been advanced compared to the prior KUB. Side-port positioned within the distal esophagus. Bowel: Bowel gas pattern is normal, with residual contrast media within the right colon. Soft tissues: No suspicious abdominal calcifications. Visualized solid organ contours appear normal in size. Bones: No suspicious bony lesions. IMPRESSION: Residual contrast media within the right colon and interval advancement of the nasogastri c tube. Dictated by: Jaron CHAN Interpreted: Ammy Ortiz MD on 11/05/2016 at 14:08 Transcribed by: MARIA ESTHER on 11/05/2016 at 14:10 Approved by: Ammy Ortiz M.D. on 11/07/2016 at 9:58
--- NOTE | 2016-11-05 15:29 | NUR ---
Evaluation completed. Please go to "Notes" then click on "Assessments and Notes" (bottom left corner of screen). Then select appropriate discipline tab on top of screen.
--- NOTE | 2016-11-05 16:06 | NUR ---
Social Work: Initial Assessment D: Per EMR review, pt is a 56 year old male admitted for Perforated Gastric Ulcer. pt is [facility]. Pt does not have a PCP and would like a follow up appointment with the [facility]. MANAGER [facility] will call to make pt an appointment prior to d/c. NOK is Alfred Mcbride, spouse. Advanced directives not completed- pt declined info from MANAGER [facility]. MANAGER [facility]BOR met with pt and dtr at bedside. Sw role explained and contact info provided. Pt lives in [place] with his spouse. He is I at baseline and uses no DME. Pt continues to drive and has never had HH or skilled rehab. Pt and family express no concerns about discharge. PT evaluation was completed with pt completing assessment SBA and ambulating 35 feet CGA. Pt will likely be able to discharge home. Pt anticipates no sw needs at discharge. A: Pt who is I at baseline. P: Anticipate pt to discharge home when medically stable; MANAGER [employer]BOR to continue to follow if needs arise LINDA Morgan
--- NOTE | 2016-11-05 17:53 | NUR ---
Ambulation Pt up easy SBA in room, just needs help with tubing. No c/o of pain being too bad other than getting back into bed but tolerable with the DECORATING INSTRUCTOR. O2 does drop when pt ambulating with NC4L to mid 80's. Reminded not to hold breath and to do slow breathing techniques.
[2016-11-06] MEDS: Piperacillin-Tazo 3.375 Gm Inj 3.375 GM in Dextrose 5% Minibag Plus 50 ML IV SCH ×2 (00:34→07:45)
[2016-11-06 00:35] VITALS: RESP 20; O2SAT 95
[2016-11-06 03:23] VITALS: BP 151/84; PULSE 96; RESP 22; O2SAT 92
--- NOTE | 2016-11-06 05:04 | NUR ---
PAIN / CIWA Patient states pain 0/10 x 3 this shift, not using ELECTRONICS DESIGN ENGINEER this shift, stating: "I want to go home." CIWA continues to be 0 thru shift. VSS, patient is no longer on tele.
[2016-11-06 05:48] VITALS: RESP 20; O2SAT 95
[2016-11-06] MEDS: Dextrose 5% Lactated Ringer's 1,000 ML IV SCH ×2 (06:00→09:50)
[2016-11-06 07:39] VITALS: BP 136/86; PULSE 94; RESP 20; O2SAT 91
[2016-11-06 07:45] VITALS: RESP 20
[2016-11-06] MEDS: levoFLOXacin Inj 750 MG in IV Premix 1 EACH IV SCH (07:58)
[2016-11-06] MEDS: Pantoprazole 4 mg/mL 10 mL Inj IVPUSH SCH (07:58)
[2016-11-06 08:00] LABS: Mean Corpuscular Hemoglobin 33.9 pg (27.0-35.0)
--- NOTE | 2016-11-06 08:02 | PCM.PNSURG ---
Subjective Visit Information: Reason for Visit Perforated Gastric Ulcer Surgery/Surgery Date Post-Op Day # Date of Admission: Nov 03, 2016 at 13:23 Hospital Day # Subjective: UGI could not be performed yesterday due to persistent contrast. Clinically he was doing well so NG was discontinued and CLD was started. He tolerated this well, stopped using PHYSICIAN/INTERNIST overnight, wants to go home. 650PO intake. Yesterday NG output was ~1L however he was taking ice chips. Objective Vital Sign- Last 8 Hours Date Time Temp Pulse Resp B/P Pulse Ox O2 Delivery O2 Flow Rate FiO2 11/06/16 07:39 36.6 94 20 136/86 91 Room Air 11/06/16 05:48 20 95 11/06/16 03:23 36.7 96 22 151/84 92 Room Air 11/06/16 00:35 20 95 Intake and Output- Last 8 Hour 11/06/16 Cumulative From/Thru 07:00 11/03/16 04:00 - 11/06/16 05:47 Intake Total 1940 ml 42413 ml Output Total 1450 ml 6175 ml Balance 490 ml 4269 ml Intake Oral 650 ml 1000 ml IV Total 1290 ml 9444 ml Output Urine Total 1450 ml 4525 ml Gastric Drainage Total 1650 ml # Bowel Movements 0 General: Alert, Oriented X3, Cooperative, No Acute Distress Abdomen: Soft, Non-tender, Other Result Diagram: 11/05/16 0815 11/05/1615 Assessment & Plan Impression POD3 lap Flaquito patch for microperforation of duodenal ulcer Problems: Plan FLD today. If this goes well, ADAT. F/U labs. POssible d/c later today. Marilia Nickerson MD Nov 06, 2016 08:02
[2016-11-06] MEDS: Senna-Docusate 8.6-50 mg Tablet PO SCH (08:08)
[2016-11-06] MEDS ORDERED: Multivit-Miner-Folic Acid-Iron Tablet PO SCH (08:30)
[2016-11-06] MEDS ORDERED: Polyethylene Glycol (PEG) 17 Gm Powder PO SCH (08:30)
--- NOTE | 2016-11-06 09:06 | PCM.PNMED ---
Subjective Date of Service Nov 06, 2016 Subjective He is doing well. Minimal abdominal pain. He did have some breakfast. He denies any nausea or emesis. Positive flatus. No abdominal distention. No chest pain, cough or palpitations. He is requesting discharge home. No overnight events. Exam Vital Signs Vital Sign - Last Date Time Temp Pulse Resp B/P Pulse Ox O2 Delivery O2 Flow Rate FiO2 11/06/16 07:39 36.6 94 20 136/86 91 Room Air 11/05/16 23:26 3.50 Intake and Output 11/05/16 11/05/16 11/06/16 Cumulative From/Thru 15:00 23:00 07:00 11/03/16 04:00 - 11/06/16 05:47 Intake Total 1259 ml 1940 ml 91595 ml Output Total 1450 ml 6175 ml Balance 1259 ml 490 ml 4269 ml Intake Oral 650 ml 1000 ml IV Total 1259 ml 1290 ml 9444 ml Output Urine Total 1450 ml 4525 ml Gastric Drainage Total 1650 ml # Bowel Movements 0 Exam Alert and oriented -3, no distress. Fluent speech Anicteric sclera. Lungs are clear with normal rate and effort Heart is regular without murmur gallop or rub Abdomen soft nontender, flat. Multiple bandages over port sites. Extremities are free of edema. Skin is free of rash or lesions. IVs and Medications Medications Reviewed: Medications were reviewed in detail Lab and Diagnostics Result Diagram: 11/06/16 0755 11/06/16 0755 X-Rays, CTs and MRIs PROCEDURE: CT ABDOMEN AND PELVIS WITH CONTRAST ([id number]) IMPRESSION: 1. Gastritis with superimposed gastric antral ulcer, which has perforated, and there is a small amount of associated pneumoperitoneum present. 2. Concordant with preliminary interpretation.Findings were discussed with Dr. Howard on 11.03.16 at 0630 hrs. by [facility] service. Dictated by: Saulo Holman M.D. on 11/03/2016 at 8:46 . 12-lead ECG Sinus rhythm rate 85, conduction normal. Assessment & Plan 56-year-old man presents with acute symptomatic peptic ulcer disease, in the setting of nonsteroidal use, heavy alcohol intake and cigarette smoking. # Peptic ulcer disease, present on admission. Duodenal ulcer. This is stable. The patient is on medical therapy. Repeat endoscopy was unsuccessful due to retained contents. #. Ulcer perforation status post upper endoscopy with laparoscopy with repair, improved. The patient is a surgery discharge home today and they likely will she can tolerate his diet and laboratories appear reasonable. # Transaminase elevation (alcohol-induced hepatitis), present on admission. Improving. Continue encourage cessation of alcohol. # Heavy alcohol use, chronic, present on admission. Currently no significant anxiety sweats or tremor. - CIWA order set\ No current evidence of alcohol withdrawal. The feels that this typically is not a problem. We will continue to follow carefully. # Tobacco dependence, chronic. Patient was counseled by Isaac regarding health benefits of quitting. - Nicotine patch when necessary Venous thromboembolism prophylaxis - plan to initiate Lovenox subcutaneous on , unless signs of active bleeding Patient is a patient status post, possibility of discharge home today. In the interim he will be transferred to the surgical medical page. GI Prophylaxis: Proton Pump Inhibitor VTE Mechanical Devices: Intermittant Pneumatic CD Yogesh Wilson MD Nov 06, 2016 09:05
[2016-11-06 09:15] VITALS: BP 151/82; PULSE 95; RESP 22; O2SAT 92
--- NOTE | 2016-11-06 10:00 | NUR ---
Transfer [facility] Patient a/o x 4, denies pain or nausea. Has SOB at rest and with activity. O2 sat mid 90's on RA. Patient encouraged to use IS at bedside. Lungs decreased bilat. Abd slightly distended, positive bowel tones. passing flatus, no BM. Lap sites x 5 with steri strips c/d/i. Patient oob amb indep steady gait. VSS, no tele. Report called to Genie NORIEGA. Patient transferred to 1008 with all belongings. Accompanied by .
[2016-11-06] MEDS: Dextrose 5% 500 ML IV SCH (10:06)
--- NOTE | 2016-11-06 11:37 | PCM.DISURG ---
Surgical Discharge Instruction Date of Service Nov 06, 2016 Dates of Hospitalization Date of Hospital Admission Nov 03, 2016 at 13:23 Providers Admitting Physician: Marilia Nickerson MD Primary Care Physician: Nopcp Attending Physician: Marilia Nickerson MD Discharge Diagnosis Discharge Diagnosis Microperforation of duodenal ulcer Post Operative diagnosis Microperforation of duodenal ulcer Diet Discharge Diet: No restrictions Activity Discharge Activity-General: No restrictions Dressing and Incisional Care Dressing Care: Allow Steri Stripes to fall off Follow Up Plan Follow Up Plan Follow up with Dr. Nickerson in 2 weeks. Marilia Nickerson MD Nov 06, 2016 11:36
[2016-11-06] MEDS ORDERED: OXYC5TAB72 PO (13:12)
[2016-11-06] MEDS ORDERED: OMEP20CA11 PO (14:04)
[2016-11-06] MEDS ORDERED: METR500T19 PO (14:06)
[2016-11-06] MEDS ORDERED: LEVO750T39 PO (14:06)
--- NOTE | 2016-11-06 14:22 | PCM.DC.MED ---
Discharge Summary Date of Service Nov 06, 2016 Dates of Hospitalization Date of Hospital Admission Nov 03, 2016 at 13:23 Date of Discharge: Nov 06, 2016 Providers: Admitting Physician: Javier Nickerson MD Primary Care Physician: Jermaine Attending Physician: Javier Nickerson MD Diagnosis at Time of Discharge Diagnosis at Time of Discharge #. Duodenal ulcer with perforation. #. Ulcer perforation status post upper endoscopy with laparoscopy with Flaquito repair. # Alcohol induced hepatitis. # Alcohol dependence. # Tobacco dependence Procedures XRay, CTs & MRIs PROCEDURE: CT ABDOMEN AND PELVIS WITH CONTRAST ([id number]) IMPRESSION: 1. Gastritis with superimposed gastric antral ulcer, which has perforated, and there is a small amount of associated pneumoperitoneum present. 2. Concordant with preliminary interpretation.Findings were discussed with Dr. Howard on 11.03.16 at 0630 hrs[facility]. Dictated by: Saulo Holman M.D. on 11/03/2016 at 8:46 . ECG 12 Lead Sinus rhythm rate 85, conduction normal. Invasive Procedures Laparoscopic Flaquito repair and endoscopy. Brief History Patient has long-standing DJD and is used nonsteroidals for many years, most recently diclofenac. He also has symptomatic dyspepsia for which he takes ranitidine. He has no prior history of peptic ulcer. On the night prior to admission he awakened with severe epigastric pain radiating to below his left anterior ribs. The pain is constant in character. There is severe. Associated with diaphoresis. No significant emesis. No exacerbating or remitting factors. He reports no recent changes in his bowel movements. He presented to the emergency department and CT imaging suggested gastric thickening with pneumoperitoneum for which he was referred to the general surgery service. Underwent endoscopic laparotomy by Dr. Nickerson, which did not confirm the diagnosis of perforation, and received an omental patch to a duodenal ulcer. He is now postop with complaints of moderate discomfort from his NG tube. He has passed no flatus since surgery. He has no other symptoms. He consumes alcohol regularly, although he has had a history of periods without alcohol without severe withdrawal symptoms. Hospital Course 56-year-old man presents with acute symptomatic peptic ulcer disease, in the setting of nonsteroidal use, heavy alcohol intake and cigarette smoking. # Peptic ulcer disease, present on admission. Duodenal ulcer. This is stable. The patient is on medical therapy. Repeat endoscopy was unsuccessful due to retained contents. #. Ulcer perforation status post upper endoscopy with laparoscopy with repair, improved. The patient is a surgery discharge home today and they likely will she can tolerate his diet and laboratories appear reasonable. # Transaminase elevation (alcohol-induced hepatitis), present on admission. Improving. Continue encourage cessation of alcohol. # Heavy alcohol use, chronic, present on admission. Currently no significant anxiety sweats or tremor. - CIWA order set\ No current evidence of alcohol withdrawal. The feels that this typically is not a problem. We will continue to follow carefully. # Tobacco dependence, chronic. Patient was counseled by Isaac regarding health benefits of quitting. - Nicotine patch when necessary Venous thromboembolism prophylaxis - plan to initiate Lovenox subcutaneous on , unless signs of active bleeding Patient is a patient status post, possibility of discharge home today. In the interim he will be transferred to the surgical medical page. Exam Vital Signs (Last) Date Time Temp Pulse Resp B/P Pulse Ox O2 Delivery O2 Flow Rate FiO2 11/06/16 11:05 Room Air 11/06/16 09:15 36.5 95 22 151/82 92 11/05/16 23:26 3.50 Exam Patient seen and examined on day of discharge. Test 11/03/16 04:06 11/04/16 03:05 11/06/16 07:55 Prothrombin Time 10.7sec (8.1-12.5) Prothromb Time International Ratio 1.00ratio Lactic Acid Level 2.0mmol/L (0.4-2.0) Lipase 30U/L (13-60) Hold Hale Top Tube Received (Received) Neutrophils (%) (Auto) 87.7% (40-74) Lymphocytes (%) (Auto) 6.8% (14-46) Monocytes (%) (Auto) 5.2% (4-12) Eosinophils (%) (Auto) 0% (0-5) Basophils (%) (Auto) 0.1% (0-3) Magnesium Level 1.9mg/dL (1.6-2.6) Total Bilirubin 0.5mg/dL (0.0-1.2) Aspartate Amino Transf (AST/SGOT) 41U/L (0-50) Alanine Aminotransferase (ALT/SGPT) 47U/L (0-44) Alkaline Phosphatase 54U/L (25-150) Total Protein 6.0g/dL (6.4-8.4) Albumin 4.0g/dL (3.4-5.0) White Blood Count 13.8th/mm3 (3.8-10.1) Red Blood Count 4.19mil/mm3 (4.40-5.80) Hemoglobin 14.2g/dL (13.8-17.2) Hematocrit 41.5% (41.0-50.0) Mean Corpuscular Volume 99.0fL (81-100) Mean Corpuscular Hemoglobin 33.9pg (27.0-35.0) Mean Corpuscular Hemoglobin Concent 34.2% (32.0-37.0) Red Cell Distribution Width 12.1% (12.3-15.4) Platelet Count 173bil/L (150-400) Sodium Level 130mEq/L (134-144) Potassium Level 3.6mEq/L (3.5-5.2) Chloride Level 93mEq/L (97-108) Carbon Dioxide Level 25mmol/L (18-29) Blood Urea Nitrogen 5mg/dL (6-24) Creatinine 0.47mg/dL (0.76-1.27) Estimat Glomerular Filtration Rate 196mL/min (>59) Glucose Level 129mg/dL (60-99) Calcium Level 8.7mg/dL (8.5-10.1) Discharge Medications Discharge Medications Levofloxacin (Levofloxacin) 750 Mg Tablet 750 MG PO DAILY Prescribed by: JAVIER NICKERSON MD Metronidazole (Metronidazole) 500 Mg Tablet 500 MG PO TID Prescribed by: JAVIER NICKERSON MD Omeprazole (Omeprazole) 20 Mg Capsule.dr 20 MG PO BID Prescribed by: JAVIER NICKERSON MD As needed oxyCODONE (oxyCODONE) 5 Mg Tablet 5-10 MG PO Q4H PRN PRN For Moderate Pain Prescribed by: JAVIER NICKERSON MD Followup Plan Disposition: 40 min Follow-up plan Follow up with Dr. Nickerson in 2 weeks. Time spent 40 min Yogesh Wilson MD Nov 06, 2016 14:22
--- NOTE | 2016-11-06 14:56 | NUR ---
Transfer to [facility], Multidisciplinary Communication, Discharge He was transferred from [facility] to [facility] with all his belongings at 0910. Report received from Jennifer Nguyen RN. 1400 - Paged Dr. Nickerson to let her know that he had eaten solid food, was tolerating it well, and wanted to discharge as soon as possible. She came to his room a couple minutes later to assess him and said he could be discharged. His two IVs were discontinued intact. He was given the discharge paperwork and it was discussed with him (prescriptions, care notes, instructions). He walked out with his at 1426 and thanked staff for all their care.
--- NOTE | 2016-11-07 07:43 | NUR ---
Call rec'd from patient's this morning with concerns regarding possible low fever (didn't check temperature) and hallucinations (sees "floaters" and grand daughter in room). Reports that her is otherwise feeling well, no pain, n/v or bloody stools and is otherwise oriented and appropriate. Discharge medications reviewed as requested by and are consistent with EMR. Prescriptions were filled and patient has been taking antibiotics as prescribed. Pt does not have a PCP currently. Encouraged to seek care if fever returns or persists or if symptoms become more concerning. Situation reviewed with Dr Wilson, plan to follow up with pt/ before noon today.
--- NOTE | 2016-11-07 11:06 | NUR ---
Follow up with patient's "Bridget". Additional information and care notes to be given to her as requested along with a return to work notice signed by Dr Wilson. (Care notes included post op abdominal surgery, peptic ulcer disease and diet, alcohol dependence and withdrawal, and smoking cessation). Special emphasis on safety and stressed no driving motor vehicles for now.
== END 2016-11-06 14:26 | disposition home or self-care (01) | DRG 331 ==
LOC: SED 03:56 → ORA 07:05 → PCC 13:23 → OSC 11-06 09:08
PROVIDERS: ADMIT Surgery; ATTEND Internal Medicine
PROC: 0DU947Z Supplement Duodenum with Autologous Tissue Substitute, Percutaneous Endoscopic Approach (ICD-10-PCS; principal; 2016-11-03 07:30)
DX: K26.5 Chronic or unspecified duodenal ulcer with perforation (principal); F17.210 Nicotine dependence, cigarettes, uncomplicated; M16.0 Bilateral primary osteoarthritis of hip; M17.0 Bilateral primary osteoarthritis of knee; R74.0 Nonspecific elevation of levels of transaminase and lactic acid dehydrogenase [LDH]; F10.20 Alcohol dependence, uncomplicated; K70.10 Alcoholic hepatitis without ascites

== ENCOUNTER 2016-11-10 01:29 | Emergency (ER) | payer OTHER ==
[~2016-11-10] VITALS: Ht 177.8 cm; Wt 75.0 kg
[~2016-11-10 01:29] MED LIST: LEVO750T39 PO; METR500T19 PO; OMEP20CA11 PO; OXYC5TAB72 PO
[2016-11-10 01:33] VITALS: BP 133/85; PULSE 111; RESP 17; O2SAT 94
--- NOTE | 2016-11-10 01:40 | ED.REPORT ---
HPI-Psychiatric Illness Date of Service November 10, 2016 ED Provider: Nishant Hidalgo MD Pt is a 56 y.o. male who presents to the ED c/o visual hallucinations onset 4 days ago. Pt states that he had peptic ulcer surgery 1 week ago and was hospitalized until 4 days ago. He was discharged on a 7 day course of Levofloxacin, although he states it is a 30 day course. He also reports that he stopped using ETOH 1 week ago. He reports associated shaking. Nursing Notes Stated Complaint: HALLUCINATIONS,SHAKING Chief Complaint: General Complaint Nursing Notes Reviewed: Yes Allergies: Coded Allergies: iodine (Verified Allergy, Severe, SHELLFISH GETS HIVES BUT PT SAYS HE HAD CONTRAST DYE IN PAST, 05/07/09) peanut (Verified Allergy, Severe, RASH, 05/07/09) Scheduled Levofloxacin (Levofloxacin) 750 Mg Tablet 750 MG PO DAILY Metronidazole (Metronidazole) 500 Mg Tablet 500 MG PO TID Omeprazole (Omeprazole) 20 Mg Capsule.dr 20 MG PO BID Scheduled PRN oxyCODONE (oxyCODONE) 5 Mg Tablet 5-10 MG PO Q4H PRN PRN For Moderate Pain General Time Seen by MD: 01:39 Chief Complaint Hallucinations, visual Hx Obtained From: Patient Arrived By: Walk-in Onset Occurred: 4 days ago Context of Onset: Other (Abx use) Symptom Duration: Intermittent Severity: Current: No pain currently Severity: Maximum: No pain Recent Healthcare: Recent hospitalization Similar Sx Previous: No Risk-Psychiatric Illness Suicide Risk Stratification RF Statements: Risk factors reviewed Past Medical History Past Medical History denies Past Surgical History Peptic ulcer Social History Alcohol Use: 1-3 per day Ambulatory Status Independent Review of Systems Neurologic: Reports: Shaking Psychiatric: Reports: Hallucinations, visual, Denies: Homicidal ideation, Suicidal ideation Complete sys rev & neg: except as marked. Physical Exam Initial Vital Signs Vital Signs (First) Date Time Temp Pulse Resp B/P Pulse Ox O2 Delivery O2 Flow Rate FiO2 11/10/16 01:33 36.6 111 17 133/85 94 Room Air Initial VS: Reviewed, Vital signs abnormal Head / Eyes: Atraumatic, Normocephalic, PERRL Respiratory: Breath sounds normal, No respiratory distress Extremities: Vascular intact, Neuro intact Skin: Warm, Dry, No cyanosis General/Constitutional: Awake, Alert, Well appearing, Well developed, Well hydrated, Well nourished, Not toxic appearing Neurologic: Oriented X3, Speech NL Movement Abnormality: Positive: Tremor Psychiatric: Not suicidal, Not homicidal Abnormal Thinking / Perception: Positive: Hallucinations, visual Responding to visual hallucinations Cardiovascular: Regular rhythm, Heart sounds NL Heart Rate / Rhythm: Positive: Tachycardia Abdomen: Soft, Non-tender, No distention Well healing incisions Re-Eval/Medical Decision Med Decision/Clinical Course T6-year-old female who is 6 days out now from surgery and has had no alcohol in6 days. He has some hallucinations. He is also on day 5 of a seven-day course of levofloxacin. I suspect that his symptoms are due to alcohol withdrawal and will treat with Ativan. Antibiomania is also a consideration. He has another 2 days of Levaquin scheduled so we will have him continue that and less symptoms dramatically worse Source of Hx: Old records Re-Evaluation/Progress : Time of Eval: 01:52 Re-Evaluation/Progress Note: Discussed plan for Ativan prescription and discharge, pt understands and agrees with plan. Counseled Regarding: Diagnosis, Lab results, Need for follow-up, When/why to return to ED Discharge & Departure Impression: Primary Impression: Alcohol withdrawal delirium )( Condition at Discharge: No danger to self, No danger to others, No suicidal ideation, No homicidal ideation Disposition: Home Discharge Condition All VS Reviewed: Yes Condition: Improved Patient Instructions: Alcohol Withdrawal (ED) Additional Instructions: Your symptoms of tactile, auditory, and visual hallucinations are most likely due to alcohol withdrawal. These should go away in the next several days. Lorazepam will help suppress these symptoms. It is also possible that the hallucinations are due to levofloxacin, although less likely. Continue the levofloxacin the entire 7 days if possible. Contact your regular provider if you have any questions or concerns. Call me at [phone] between the hours of 9 PM and 6 AM for the next couple nights of you have any questions or concerns. Referrals: NOPCP (PCP) Scribe Attestation Portions of this note were transcribed by Génesis Sorto. I, personally performed the history, physical exam and medical decision-making; I reviewed and confirmed the accuracy of the information in the transcribed note. Signed by: Denis Reagan, 11/10/16 and 0210. Nishant Hidalgo MD November 10, 2016 01:40 GÉNESIS SORTO November 10, 2016 01:56
[2016-11-10] MEDS ORDERED: LORazepam 2 mg Tablet PO ONE (02:05)
== END 2016-11-10 02:19 | disposition home or self-care (01) ==
LOC: SED 01:29
DX: F10.231 Alcohol dependence with withdrawal delirium (principal); F17.200 Nicotine dependence, unspecified, uncomplicated; Z98.890 Other specified postprocedural states; Z87.11 Personal history of peptic ulcer disease; Z91.041 Radiographic dye allergy status

== ENCOUNTER 2017-03-03 15:50 | Day surgery (SDC) | payer OTHER ==
[~2017-03-03] VITALS: Ht 170.2 cm; Wt 77.6 kg
[~2017-03-03 15:50] MED LIST changes: -LEVO750T39 PO; +LORA0.5T PO; -METR500T19 PO; +fentaNYL-PF 50 mCg/mL 2 mL Inj IVPUSH PRN
[2017-03-03] MEDS ORDERED: Propofol 10,000 mCg/mL 20 mL Inj ONE (15:51)
[2017-03-03 16:15] VITALS: BP 139/93; PULSE 83; RESP 12; O2SAT 96
--- NOTE | 2017-03-03 17:05 | PCM.HPANE ---
Patient Data Surgeon Admitting Provider: Attending Provider:Marilia Nickerson MD Primary Care Physician:Nopcp Other Provider: Reason for Visit Duodenal Ulcer Ht/WT & BMI Height (Feet): 5 Height (Inches): 7 Weight (Kilograms): 77.56 Body Mass Index 26.00 Allergies Coded Allergies: iodine (Verified Allergy, Severe, SHELLFISH GETS HIVES BUT PT SAYS HE HAD CONTRAST DYE IN PAST, 03/03/17) peanut (Verified Allergy, Severe, RASH, 03/03/17) Past Anesthesia History Anesthesia History: Denies:: Abnormal Airway, Anesthesia Reactions, Difficult Intubation, Fam Anesthesia Reaction, Fam Malignant Hypertherm, Malignant Hyperthermia Diabetes History Hx Diabetes?: No MRSA MRSA: No Medications Reported Medications Lorazepam 0.5 Mg Tablet0.5 Mg PO QID PRN For Anxiety Ref 0 01/06/17 Discontinued Scripts Omeprazole 20 Mg Capsule.dr20 Mg PO BID #60 CAPSULE Ref 0 Prov:Marilia Nickerson MD 11/06/16 oxyCODONE 5 Mg Tablet5-10 Mg PO Q4H PRN For Moderate Pain #15 TABLET Prov:Marilia Nickerson MD 11/06/16 Metronidazole 500 Mg [id number] Mg PO TID #21 TABLET Ref 0 Prov:Marilia Nickerson MD 11/06/16 Levofloxacin 750 Mg [id number] Mg PO DAILY #7 TABLET Prov:Marilia Nickerson MD 11/06/16 History History of ENT Problems?: No HEENT History: Denies:: Abnormal Airway Cataracts Difficult Intubation Dysphagia Hearing Problem Sinus Problem Denture Type: None Teeth Condition: Within Normal Limits Hx of Heart Problems?: No Cardiovascular History: Denies:: Cardiac Surgery Chest Pain Congestive Heart Failure Edema Heart Murmur Hypertension Irregular Heartbeat Pacemaker Thrombophlebitis Hx of Respiratory Problem?: No Respiratory History: Positive for:: Pneumonia (10 years ago ) Denies:: Asthma COPD Chest Surgery Dyspnea Emphysema Hemoptysis Tuberculosis Hx Neurologic Problems?: No Neurological History: Denies:: CVA Other Neurological Pertinent: Hallucinations when decreasing amount of alcohol intake Hx of GI Problems?: Yes Hx of Problems?: No Genitourinary History: Denies:: HX of Hemodialysis Kidney Stones Urinary Tract Infection HX of Peritoneal Dialysis: No Male Hx: Denies:: Prostate Problems Scrotal Mass Testicular Surgery Hx Musculoskeletal Problems?: Yes Musculoskeletal History: Positive for:: Back Injury Denies:: Fibromyalgia Joint Replacement Musculoskeletal Trauma Hx of Psycho/Social Problems?: No Psycho Social History: Denies:: Anxiety Hx Depression Hx Surgeries?: Yes (LAPAROSCOPY IN NOVEMBER FOR BLEEDING ULCER) Hx Any Other Health Problems?: Yes Other History: Positive for:: Hospitalization (10 years ago for pnuemonia ) Denies:: Cancer Endocrine Disease Thyroid Disease History Blood Transfusions: Denies:: Blood Transfuse Reaction Blood Transfusions Hx Diabetes: No Hx Alcohol Use: Yes (2 DRINKS A NIGHT)Hx Substance Use: No Smoking Status: Current Every Day Smoker Have You Smoked inLast 12 mo: Yes Stop/Bang Treated for Sleep Apnea?: No S-Snoring: Do You Snore Loudly: Yes T-Tired: feel tired, fatigued: No O-Obsered: Observed not breath: No P-Blood Pressure: treated: No B- Body Mass Index > 35 kg/m2: No A- Age over 50: Yes N- Neck Large Circumference: No G- Gender Male: Yes LACHELLE Total Score: 3 Risk Assessment Category Category 1A: Patient has history of documented sleep apnea, and HAS NOT received any narcotic, sedative or anesthesia administration during this stay. Category 1B: Patient has history of documented sleep apnea, and HAS received any narcotic , sedative or anesthesia administration during this stay Category 2: Patient has SUSPECTED Obstructive Sleep Apnea, and HAS received any narcotic , sedative or anesthesia administration during this stay. Category 3: Patient has SUSPECTED Obstructive Sleep Apnea and HAS NOT received narcotic, sedative or anesthesia administration during this stay. Category 4: Outpatient in Procedural Areas with known sleep apnea or who screen positive for High Risk via the STOP/BANG questionnaire. Exam Exam Vital Signs Vital Signs Date Time Temp Pulse Resp B/P Pulse Ox O2 Delivery O2 Flow Rate FiO2 03/03/17 16:15 83 12 139/93 96 Room Air General Appearance: Alert, Oriented X3, Cooperative, No Acute Distress HEENT/AIRWAY: MP 2 Lungs: Normal Air Movement Heart: Exam Unremarkable Plan Impression Patient chart reviewed, patient interviewed and anesthestic plan with risks, benefits, and alternatives discussed, and informed consent obtained. Rickie Gray MD Mar 03, 2017 17:05
[2017-03-03 17:51] VITALS: BP 120/72; PULSE 85; RESP 14; O2SAT 97
[2017-03-03 18:01] VITALS: BP 131/81; PULSE 77; RESP 12; O2SAT 98
--- NOTE | 2017-03-03 18:09 | ENDO ---
[address] [address] ENDOSCOPY PROCEDURE PATIENT: OTTONIEL BANSAL : 1960 MR#: [id number] ADMIT: 03/03/2017 JOB ID: [id number] DATE: 03/03/2017 PREPROCEDURE DIAGNOSIS(ES): History of perforated duodenal ulcer. POSTPROCEDURE DIAGNOSIS: Peptic ulcer disease. SURGEON: Marilia Nickerson MD PROCEDURE PERFORMED: Upper endoscopy with biopsies. HISTORY OF PRESENT ILLNESS: This is a 57-year-old man with a history of heavy alcohol use who presented with a perforated duodenal ulcer in November 2016. He underwent laparoscopy and the perforation was found to be a microperforation associated with an ulcer just distal to the pylorus. A Flaquito patch was performed. Upper endoscopy was booked for at least six weeks after the procedure to assess the presence of ulceration. FINDINGS: 1. Heaped up the scar tissue at the pylorus with a deep gastric ulcer. 2. Polypoid nodule within the duodenum, biopsied. 3. He had an irregular squamocolumnar junction with what appeared to be a tongue of Mckeon's, prior classification C1 M3, with the diaphragmatic hiatus at 40 cm. A biopsy was performed of the largest tongue to rule out Mckeon's esophagus. DESCRIPTION OF PROCEDURE: The patient was brought to the endoscopy suite and placed in left lateral decubitus position. Anesthesia was performed by the cash applications clerk given the history of alcohol use. The upper endoscope was advanced after a preprocedural pause had been performed. The esophagus was normal, with the exception of the squamocolumnar junction irregularity and a tongue of what appeared to be Mckeon's, as noted above, which was biopsied. The stomach appeared mostly normal, with the exception of the gastric outlet, which contained heaped up scar tissue and a deep gastric ulcer just proximal to the pylorus. Biopsies were not performed of this region. It was difficult to advance the endoscope into the duodenum; however, with moderate pressure this was performed. There was a small polypoid nodule within the duodenum which was biopsied. 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 The mucosa within this appeared normal. The endoscope was advanced to the third portion of the duodenum. It was then withdrawn. A random gastric biopsy was performed to rule out H. pylori. The endoscope was withdrawn after all the biopsies had been performed, as noted above. The patient tolerated the procedure well. COMPLICATIONS: None. SPECIMENS: 1. Duodenal nodule. 2. Random gastric biopsy, rule out H. pylori. 3. 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
[2017-03-03 18:11] VITALS: BP 151/87; PULSE 82; RESP 12; O2SAT 98
--- NOTE | 2017-03-03 18:53 | PCM.ANEP1 ---
Post Anesthesia PACU Phase 1 Assessment Vital Signs Vital Signs Date Time Temp Pulse Resp B/P Pulse Ox O2 Delivery O2 Flow Rate FiO2 03/03/17 18:11 82 12 151/87 98 Room Air 03/03/17 18:01 77 12 131/81 98 Room Air 03/03/17 17:51 36.9 85 14 120/72 97 Nasal Cannula 2 03/03/17 16:15 83 12 139/93 96 Room Air Anesthetic Administered: GA Level of Alertness: Awake, talking Pain: No Nausea or Vomiting: No CV Function & Hydration Stable: Yes Airway Device: None Lungs: Normal Air Movement PACU Phase 2 Assessment Complications: No Follow up Care: N/A Patient Instructions Provided: N/A Rickie Gray MD Mar 03, 2017 18:53
--- NOTE | 2017-03-08 16:37 | PATH ---
SURGICAL PATHOLOGY Attending Physician:Marilia Nickerson MD CASE STATUS: Signed Out PATIENT NAME: OTTONIEL BANSAL PID: [id number] : 1960 DATE COLLECTED:03/03/2017 00:00 SPECIMEN: 1: Esophagus, Biopsy 2: Gastric, Biopsy 3: Duodenum, Biopsy CLINICAL HISTORY: HISTORY DUODENAL ULCER, GASTRIC ULCER, ? SOLIS'S, DUODENITIS 1). DISTAL ESOPHAGUS BIOPSY 2). GASTRIC BIOPSY, RULE OUT H.PYLORI 3). DUODENAL BIOPSY FINAL DIAGNOSIS: 1. Distal Esophagus, Biopsy: Squamocolumnar junctional mucosa with specialized intestinal metaplasia, consistent with Solis's esophagus. Negative for dysplasia or malignancy. 2. Stomach, Biopsy: Gastric antral mucosa with mild chronic gastritis. Helicobacter organisms not identified. Negative for intestinal metaplasia, dysplasia or malignancy. 3. Duodenum, Biopsy: Mild active duodenitis. Negative for dysplasia or malignancy. ICD10: K22.7 GROSS DESCRIPTION: Received three formalin-filled containers, each labeled with the patient' s name. 1. Received in formalin, labeled with the patient' s name and "distal esophagus biopsy", is one fragment of pedraza, soft tissue measuring 0.4 x 0.1 x 0.1 cm. The fragment is totally submitted in cassette 1A. 2. Received in formalin, labeled with the patient' s name and "gastric biopsy", is one fragment of pedraza, soft tissue measuring 0.3 x 0.2 x 0.1 cm. The fragment is totally submitted in cassette 2A. 3. Received in formalin, labeled with the patient' s name and "duodenal biopsy", are two fragments of pedraza, soft tissue ranging from 0.1 x 0.1 x 0.1 cm to 0.2 x 0.1 x 0.1 cm. The fragments are totally submitted in cassette 3A. [id number]) ICD-9 CODES: CPT CODES: 1: 96497 2: 62676 3: 05459 Electronically Signed Out Bala Ruiz MD, Ph.D. [facility] Pathology [facility] [address], [place] [address] Technical component performed at [facility], [address], [place], [address]
== END 2017-03-03 23:59 | disposition home or self-care (01) ==
LOC: END 15:50
PROVIDERS: ATTEND Surgery
DX: K29.50 Unspecified chronic gastritis without bleeding (principal); K22.70 Barrett's esophagus without dysplasia; K29.80 Duodenitis without bleeding; F17.210 Nicotine dependence, cigarettes, uncomplicated; F10.20 Alcohol dependence, uncomplicated; Z87.11 Personal history of peptic ulcer disease
CPT/HCPCS: 43239; J2704